=== PATIENT | female | born 1995 | race African-American/Black ===

== ENCOUNTER 2017-03-07 16:31 | Emergency (ER) | payer MEDICAID ==
[~2017-03-07] VITALS: Ht 162.6 cm; Wt 95.3 kg
[2017-03-07] MEDS ORDERED: PROMETHAZINE-D118 ML ORAL (17:22)
[2017-03-07] MEDS ORDERED: FLONASE SENSIM9.9 ML NS (17:22)
[2017-03-07] MEDS ORDERED: CLARITIN-D 241 EACH PO (17:22)
[2017-03-07 20:35] VITALS: BP 139/104
--- NOTE | 2017-03-07 20:57 | Emergency Room Report ---
History of Present Illness General Chief Complaint: Upper Respiratory Illness Source: Patient Present Illness HPI The patient is a 21-year-old female presenting for cough for the past 10 days. She denies any known sick contacts or recent travel. She denies other symptoms including fever, chills, wheezing, shortness of breath, sore throat, fatigue, myalgia. She does admit to chest pain described as a 10 out of 10 dull ache to the mid chest and occurs with coughing only. Allergies: Coded Allergies: AMOXICILLIN (Verified Allergy, Unknown, Itching, 03/07/17) PENICILLINS (Verified Allergy, Unknown, Itching, 03/07/17) Patient History Past Medical History: see triage record Pertinent Family History: none Last Menstrual Period: 02/25/16. Now: No Reviewed Nursing Documentation: PMH: Agreed, PSxH: Agreed Nursing Documentation-PMH Past Medical History: No Stated History Review of Systems All Other Systems: negative except mentioned in HPI Physical Exam Vital Signs Date Time Temp Pulse Resp B/P (MAP) Pulse Ox O2 Delivery O2 Flow Rate FiO2 03/07/17 17:10 100.0 95 19 139/104 100 Room Air Sp02 EP Interpretation: reviewed, normal General Appearance: no apparent distress, alert, GCS 15, non-toxic Head: normocephalic, atraumatic Eyes: bilateral eye normal inspection, bilateral eye PERRL ENT: no angioedema, normal voice, TMs + canals normal, uvula midline, moist mucus membranes, nasal congestion Neck: full range of motion, supple/symm/no masses Respiratory: chest non-tender, lungs clear, normal breath sounds, speaking full sentences Cardiovascular #1: regular rate, rhythm, no edema Musculoskeletal: back normal, gait/station normal, normal range of motion, non- tender Neurologic: alert, oriented x3, responsive, motor strength/tone normal, sensory intact, speech normal Psychiatric: judgement/insight normal, memory normal, mood/affect normal, no suicidal/homicidal ideation Skin: normal color, no rash, warm/dry, well hydrated Medical Decision Making PA Attestation Dr. Garcia is my supervising physician. Patient management was discussed with my supervising physician Diagnostic Impression: Primary Impression: Rhinitis Qualified Codes: J31.0 - Chronic rhinitis ER Course The patient is a 21-year-old female presenting for cough for the past 10 days Differential diagnosis include but not limited to pharyngitis, sinusitis, AOM, bronchitis, PNA, influenza PE: Afebrile. NAD HEENT exam significant only for bilateral nasal congestion and edema Lungs are clear to auscultation bilaterally The patient will be treated for rhinitis ER precautions given Last Vital Signs Date Time Temp Pulse Resp B/P (MAP) Pulse Ox O2 Delivery O2 Flow Rate FiO2 03/07/17 20:35 100.0 19 139/104 100 Room Air 03/07/17 20:35 95 Status: improved Disposition: HOME, SELF-CARE Condition: Improved Scripts D-Methorphan Hb/Prometh Hcl* (PROMETHAZINE-DM SYRUP*) 118 Ml Syrup 5 ML ORAL Q6H Y for For Cough, #118 ML 0 Refills Prov: ARI NAIR P.A. 03/07/17 Loratadine/Pseudoephedrine (CLARITIN-D 24 HOUR TABLET) 1 Each Tab.er.24h 1 TAB PO DAILY, #30 TAB Prov: ARI NAIR P.A. 03/07/17 Fluticasone Furoate (FLONASE SENSIMIST) 9.9 Ml [place].susp 1 SPRAYS NS DAILY, #10 ML Prov: TERZIANDIONNEY P.A. 03/07/17 Referrals: NON PHYSICIAN (PCP) Patient Instructions: Allergic Rhinitis Additional Instructions: I discussed my findings with the patient. All questions and concerns have been answered. Treatment and medication compliance have been addressed. I advised the patient that they need to follow up with PMD in 3-5 days. Return to ED if pain remains or worsens, cough worsens or remains, you notice blood in your sputum, you notice wheezing, you experience a fever, or if needed for any reason. Patient verbalized understanding of discharge instructions. ARI NAIR Mar 07, 2017 20:57
== END 2017-03-07 20:36 | disposition home or self-care (01) ==
LOC: EMR 17:20
DX: J31.0 Chronic rhinitis (principal); Z88.0 Allergy status to penicillin; Z88.1 Allergy status to other antibiotic agents
CPT/HCPCS: 99283

== ENCOUNTER 2019-02-01 16:12 | Emergency (ER) | payer MEDICAID ==
[~2019-02-01] VITALS: Ht 162.6 cm; Wt 98.4 kg
[~2019-02-01 16:12] MED LIST: CLARITIN-D 241 EACH PO; FLONASE SENSIM9.9 ML NS; PROMETHAZINE-D118 ML ORAL
[2019-02-01 16:20] VITALS: BP 130/95
--- NOTE | 2019-02-01 16:20 | NUR ---
ED Nurse Note: Pt ambulated into ER from home. Pt reports lower abdominal pain and vaginal pain 9/10 accompanied by rash in vaginal area. Pt reported that she has recently been diagnosed with bacterial vaginosis twice by another doctor. Pt reports pain and burning during urination that "feels like tearing." PA at bedside.
[2019-02-01] MEDS ORDERED: NKM (16:23)
--- NOTE | 2019-02-01 16:40 | Emergency Room Report ---
History of Present Illness General Chief Complaint: Female Urogenital Problems Source: Patient Present Illness HPI 23-year-old female complaining of vaginal pain x 1 week white discharge today. Patient states that she initially had vaginal itching 3 weeks ago and was treated for BV with oral antibiotics and then vaginal insert, itchiness resolved. Patient went to a clinic and received a Rocephin injection and azithromycin 1 g p.o. (patient brought bottle). Denies fever, chills, vomiting , abdominal pain. Sexually active with one male partner in the last 6 months. Allergies: Coded Allergies: AMOXICILLIN (Verified Allergy, Unknown, Itching, 03/07/17) PENICILLINS (Verified Allergy, Unknown, Itching, 03/07/17) Patient History Past Medical History: none Past Surgical History: none Social History: Reports: smoking - marijuana; Denies: alcohol use, drug use Last Menstrual Period: 01/14/19 Nursing Documentation-[facility] Past Medical History: No Stated History Review of Systems All Other Systems: negative except mentioned in HPI Physical Exam Vital Signs Date Time Temp Pulse Resp B/P (MAP) Pulse Ox O2 Delivery O2 Flow Rate FiO2 02/01/19 16:18 98.2 110 20 155/108 (124) 99 Room Air Sp02 EP Interpretation: reviewed General Appearance: no apparent distress, alert, GCS 15, non-toxic Respiratory: chest non-tender, lungs clear, normal breath sounds, speaking full sentences Cardiovascular #1: regular rate, rhythm, no edema Gastrointestinal: non tender, soft, no mass, non-distended Genitourinary: adnexa normal, cervix normal - closed, no bleeding., other - few sores on external vagina, thick white discharge. Shawanda GONZALEZ bedside forensic materials engineer Skin: no rash, warm/dry Medical Decision Making PA Attestation This patient was seen under the direct supervision of Dr. Vargas, who directed all aspects of care and diagnostic interpretation. ER Course ED course HPI: 23-year-old female complaining of vaginal pain x 1 week white discharge today. Patient states that she initially had vaginal itching 3 weeks ago and was treated for BV with oral antibiotics and then vaginal insert, itchiness resolved. Patient went to a clinic and received a Rocephin injection and azithromycin 1 g p.o. (patient brought bottle). Denies fever, chills, vomiting , abdominal pain. Sexually active with one male partner in the last 6 months. Ddx: UTI, STD, vaginitis HPI & PE consistent with: UTI, acute vaginitis Orders/ Interventions: Pelvic exam performed with Shawanda RN as bedside forensic materials engineer. White thick discharge in the vaginal vault, no CMT tenderness. Do not suspect PID. UA shows 3+ leukocyte esterase, TNTC WBC, many bacteria, few yeast. Wet mount shows no trichomonas, no clue cells, few yeast, many WBC, bacteria, squamous epithelial. Case discussed with Dr. Vargas, who agreed with ER course and disposition. Suspect patient has yeast infection with possible UTI and genital herpes. Patient given Diflucan 150 mg p.o. x1 in the ER. Disposition: Prescription for Macrobid given, start. If not improved in 2 days, start acyclovir. Patient's the importance of following up with primary care for HIV and syphilis testing. At this time pt. is stable for d/c to home. Will provide printed patient care instructions, and any necessary prescriptions. Care plan and follow up instructions have been discussed with the patient prior to discharge. Please note that this Emergency Department Report was dictated using [employer] cut examiner technology software, occasionally this can lead to erroneous entry secondary to interpretation by the dictation equipment. Lab Results Impression Laboratory Tests Test 02/01/19 16:39 Urine Color Yellow Urine Appearance Cloudy Urine pH 6 (4.5-8.0) Urine Specific [place] 1.010 (1.005-1.035) Urine Protein 2+ (NEGATIVE) H Urine Glucose (UA) Negative (NEGATIVE) Urine Ketones Negative (NEGATIVE) Urine Blood 2+ (NEGATIVE) H Urine Nitrite Negative (NEGATIVE) Urine Bilirubin Negative (NEGATIVE) Urine Urobilinogen Normal MG/DL (0.0-1.0) Urine Leukocyte Esterase 3+ (NEGATIVE) H Urine RBC 2-4 /HPF (0 - 2) H Urine WBC Tntc /HPF (0 - 2) H Urine Squamous Epithelial Cells Many /LPF (NONE/OCC) H Urine Bacteria Moderate /HPF (NONE) H Urine Yeast Few /HPF (NONE) H Urine HCG, Qualitative Negative (NEGATIVE) Microbiology Date/Time Source Procedure Growth Status 02/01/19 16:50 Vaginal Wet Prep - Final Complete Last Vital Signs Date Time Temp Pulse Resp B/P (MAP) Pulse Ox O2 Delivery O2 Flow Rate FiO2 02/01/19 16:18 98.2 110 20 155/108 (124 99 Room Air Status: improved Disposition: HOME, SELF-CARE Condition: Stable Scripts Acyclovir* (ACYCLOVIR*) 400 Mg Tablet 400 MG ORAL EVERY 8 HOURS for 7 Days, #21 TAB 0 Refills Prov: Yuriy Herbert 02/01/19 Nitrofurantoin Monohyd/M-Cryst* (MACROBID 100 MG*) 100 Mg Capsule 100 MG ORAL EVERY 12 HOURS for 5 Days, #10 CAP Prov: Yuriy Herbert 02/01/19 Patient Instructions: Vaginitis, Urinary Tract Infection, Vaginal Yeast Infection, Adult Additional Instructions: Keep area clean and dry. Loose underwear. Avoid harsh soaps, use warm water clean area. Follow-up with PCP in 2 days return to ER if worsening symptoms, new symptoms or sudden change in condition. Yuriy Herbert Feb 01, 2019 16:40
--- NOTE | 2019-02-01 16:50 | NUR ---
ED Nurse Note: PA performed pelvic exam, cultures sent to the lab.
[2019-02-01 17:03] LABS: APPEARANCE,URINE CLOUDY; BILIRUBIN, URINE NEGATIVE (NEGATIVE); GLUCOSE, URINE (UA) NEGATIVE (NEGATIVE); KETONES,URINE NEGATIVE (NEGATIVE); LEUKOCYTE ESTERASE ,URINE 3+ (NEGATIVE); NITRITE,URINE NEGATIVE (NEGATIVE); PH,URINE 6 (4.5-8.0); PROTEIN,URINE 2+ (NEGATIVE); UROBILINOGEN,URINE NORMAL MG/DL (0.0-1.0)
[2019-02-01 17:09] LABS: COLOR,URINE YELLOW
[2019-02-01 17:10] VITALS: BP 126/89
--- NOTE | 2019-02-01 17:20 | NUR ---
ED Nurse Note: PA at bedside reviewing lab results with patient.
[2019-02-01] MEDS ORDERED: Fluconazole 150mg tab ORAL ONE (17:30)
[2019-02-01] MEDS ORDERED: NITROFURANTOIN100 M2 ORAL (17:32)
[2019-02-01] MEDS ORDERED: ACYCLOVIR400 MG ORAL (17:33)
[2019-02-01 17:45] VITALS: BP 120/90
--- NOTE | 2019-02-01 17:45 | NUR ---
ER DISCHARGE NOTE: Patient is cleared to be discharged home per ERPA, pt is aox4, on room air, with stable vital signs. Pt's pain remained 9/10 throughout visit, PA aware. pt was given dc and prescription instructions, pt was able to verbalize understanding, pt id band removed without complications. pt is able to ambulate with steady gait. pt took all belongings.
== END 2019-02-01 17:45 | disposition home or self-care (01) ==
LOC: EMR 16:44
DX: N39.0 Urinary tract infection, site not specified (principal); N76.0 Acute vaginitis; Z88.0 Allergy status to penicillin; Z88.1 Allergy status to other antibiotic agents
CPT/HCPCS: 81003; 81025; 87086; 87210; Z7502; 99283

== ENCOUNTER → 2019-12-24 | Emergency (ER) | payer MEDICAID ==
[~2019-12-24] VITALS: Ht 160 cm; Wt 93.4 kg
[~2019-12-24] MED LIST changes: +ACYCLOVIR400 MG ORAL; +CLINDAMYCIN HC150 MG ORAL; +Fluconazole 150mg tab ORAL ONE; +NITROFURANTOIN100 M2 ORAL; +NKM
--- NOTE | 2019-12-24 11:22 | NUR ---
ED Nurse Note: Pt ambulated to ed c/o itching, urinary frequency, and "boils" at vaginal area. pt reports she has history of herpes. pt denies draingage, foul smell, blood presence in urine. Addendum: 12/24/19 at 1128 by PDELEON ED Nurse Note: Pt ambulated to ed c/o itching, urinary frequency, and "boils" at vaginal area. pt reports she has history of herpes. pt denies draingage, blood presence in urine. Pt reports foul smell, and white discharge
[2019-12-24 11:23] VITALS: BP 129/83
--- NOTE | 2019-12-24 11:28 | NUR ---
ED Nurse Note: Urine sent to lab
--- NOTE | 2019-12-24 11:36 | NUR ---
ED Nurse Note: chaparonned ermd with pelvic exam
[2019-12-24 11:51] LABS: APPEARANCE,URINE CLEAR; BILIRUBIN, URINE NEGATIVE (NEGATIVE); COLOR,URINE PALE YELLOW; GLUCOSE, URINE (UA) NEGATIVE (NEGATIVE); KETONES,URINE NEGATIVE (NEGATIVE); LEUKOCYTE ESTERASE ,URINE NEGATIVE (NEGATIVE); NITRITE,URINE NEGATIVE (NEGATIVE); PH,URINE 7 (4.5-8.0); PROTEIN,URINE NEGATIVE (NEGATIVE); UROBILINOGEN,URINE NORMAL MG/DL (0.0-1.0)
--- NOTE | 2019-12-24 12:05 | Emergency Room Report ---
History of Present Illness General Chief Complaint: Female Urogenital Problems Source: Patient Present Illness HPI 24-year-old -Portuguese female with past medical history of genital herpes presents with white malodorous vaginal discharge since taking antibiotics for BV 3 weeks ago. She was previously treated for cervicitis when she was diagnosed with BV and denies concern for STI at this time. She is currently on valacyclovir which she was been taking continuously since July, and also has a secondary complaint of "lumps" near her bikini line. Denies dysuria, hematuria, n/v/d, fever, chills, rash. She states that the lumps are better when she does not shave. The patient's symptoms were [gradual] onset, severity was [moderate], duration since 2 days. Quality: white discharge ; denies abd or pelvic pain Past medical history: genital herpes Past surgical history: Denies Smoking: Denies Alcohol use: Denies Drug use: Denies Review of systems: CONST: No fevers or chills, No night sweats PULMONARY: No productive cough, No shortness of breath CARDIAC: No chest pain, No palpitations GI: No vomiting, No diarrhea , No melena_or_BRBPR : No dysuria, No hematuria, No discharge NEURO: No new_focal_weakness_or_numbness, No confusion, No vision changes 14 point Review of Systems is otherwise negative except per HPI Physical Exam: GENERAL: Awake_alert_ nontoxic, no acute distress Spo2 96% on RA NORMAL EYES: Extraocular muscles are intact. Conjunctivae clear. Lids without swelling ENT: External nose and ear normal_in_appearance. Oropharynx clear. Head_atraumatic, Moist_oral_mucosa NECK: No JVD. No meningismus. No thyromegaly. Supple. Trachea midline RESP: Normal respiratory effort. Symmetric rise. No stridor. Clear_to_auscultation_No_rales_No_wheezes CARDIAC: Regular rate and regular rhytm. No_significant pedal edema. ABDOMEN: Soft. Nondistended. Nontender_No_rebound_or_guarding. : cottage cheese vaginal discharge. no bleeding. normal ext genitalia, no CMT, Chaperoned by female temporary staff accountant Stephanie Folliculitis surrounding bikini line pubic hairs. no abscess. no cellulitis. No palpable crepitus. No Marleen gangrene MSK: Normal muscle tone, without rigidity. Extremities without asymmetric deformity or swelling. SKIN: Warm and dry. No visible cyanosis or pallor NEUROLOGIC: Alert, oriented x3. Motor_and_sensation_grossly_intact. No truncal ataxia. Gait_normal Psych: Normal mood and affect, normal judgment and insight - COORDINATION OF CARE Case was discussed with: Patient Any labs and imaging that were ordered were interpreted as part of the medical decision making: Medical Decision Making/Plan: Differential diagnosis includes yeast infection, bacterial vaginosis, trichomonas infection, chlamydia infection, gonorrhea infection, among others. UA negative for_UTI. Pelvic exam without any evidence of PID. Pelvic exam is consistent with yeast infection. Likely caused by bacterial overgrowth during recent antibiotic use treating BV. She has complaint of "lumps" in the bikini line. They were noted to be folliculitis without abscess. I have counseled her to stop shaving her bikini line and to apply warm compresses to the area. Will prescribe clindamycin in case the folliculitis turns into a small abscess. She was instructed not to take these antibiotics unless an abscess forms due to the risk of prolonging her yeast infection. She verbalizes her understanding. Patient appears stable for discharge home and follow up with PMD. Patient was offered testing and treatment for gonorrhea/chlamydia, however she declines at this time. She denies concern for STD Pt instructed to f/u with PMD as outpatient for remainder of STD testing, including syphilis and HIV. She will continue her valacyclovir for genital herpes Pertinent results reviewed with the patient. I educated the patient on the current treatment plan including the risks, benefits, and alternatives. I also discussed the extent and limitations of the current evaluation. The patient expressed understanding and agreement with plan. I recommended PMD follow-up within 1-2 days. Also advised that the patient return to the Emergency Department as soon as possible if they experience any new, persistent, or worsening symptoms. Allergies: Coded Allergies: AMOXICILLIN (Verified Allergy, Unknown, Itching, 03/07/17) PENICILLINS (Verified Allergy, Unknown, Itching, 03/07/17) COVID-19 Screening Contact w/high risk pt: No Experienced COVID-19 symptoms?: No COVID-19 Testing performed SAXOPHONE PLAYER: No Patient History Last Menstrual Period: 12/11/2019 Now: No Physical Exam Vital Signs Date Time Temp Pulse Resp B/P (MAP) Pulse Ox O2 Delivery O2 Flow Rate FiO2 12/24/19 11:12 98.1 90 18 129/83 (98) 96 Room Air Sp02 EP Interpretation: reviewed, normal Medical Decision Making Diagnostic Impression: Primary Impression: Acute vaginitis Additional Impressions: Yeast infection Folliculitis EKG Diagnostic Results Troponin ordered: No Reevaluation Time: 12:04 Last Vital Signs Date Time Temp Pulse Resp B/P (MAP) Pulse Ox O2 Delivery O2 Flow Rate FiO2 12/24/19 11:23 98.1 75 18 129/83 96 Room Air Status: improved Disposition: HOME, SELF-CARE Admit Decision Time: 12:04 Condition: Stable Scripts Clindamycin Hcl* (CLINDAMYCIN HCL*) 150 Mg Capsule 150 MG ORAL FOUR TIMES A DAY for 5 Days, #20 CAP Prov: Rajni Arciniega D.O. 12/24/19 Patient Instructions: Vaginal Yeast Infection, Adult Additional Instructions: Instructions for patient/surgical technology instructor: Follow up with your physician in 1-2 days. Use condoms during sex Follow-up with your doctor sooner if your condition requires a more timely clinical reevaluation. Return to the emergency department immediately if you feel that your condition is worsening or if you have any new or concerning symptoms. Review your discharge instructions and take any prescriptions given as instructed. [facility] PROVIDES FREE OR LOW-COST HEALTH SERVICES TO PEOPLE WHO CAN SHOW PROOF THAT THEY LIVE IN [facility]. TO FIND MORE CLINICS PARTNERED WITH THE [facility] TO PROVIDE SERVICE, PLEASE CALL . Rajni Arciniega D.O. Dec 24, 2019 12:05
--- NOTE | 2019-12-24 12:31 | NUR ---
ER DISCHARGE NOTE: Patient is cleared to be discharged per ERMD, pt is aox4, on room air, with stable vital signs. pt was given dc and prescription instructions, pt was able to verbalize understanding, pt id band removed. pt is able to ambulate with steady gait. pt took all belongings.
[2019-12-24 12:32] VITALS: BP 130/88
== END | disposition home or self-care (01) ==
LOC: EMR 12:00
DX: N76.0 Acute vaginitis (principal); B37.9 Candidiasis, unspecified; L73.9 Follicular disorder, unspecified; Z88.0 Allergy status to penicillin
CPT/HCPCS: 81001; 81025; 87590; Z7502; 99283